=== PATIENT | male | born 1995 | race Two or more races ===

== ENCOUNTER 2022-08-26 22:27 | Emergency (ER) | payer OTHER ==
[2022-08-26] MEDS ORDERED: Lidocaine Viscous Sol 2% 15 ml UD Cup ONE (22:56)
[2022-08-26] MEDS ORDERED: Mag-Al 1200 mg/1200 mg/30 ML UDCUP ONE (22:56)
[2022-08-26] MEDS ORDERED: Dicyclomine 20 MG TAB ONE (22:59)
== END 2022-08-27 00:57 | disposition home or self-care (01) ==
LOC: ERS 22:27
DX: K21.00 Gastro-esophageal reflux disease with esophagitis, without bleeding (principal)
CPT/HCPCS: 99283